=== PATIENT | male | born 1990 | race Caucasian/White ===

== ENCOUNTER 2025-05-06 17:22 | Emergency (ER) | payer MEDICAID ==
[~2025-05-06] VITALS: Ht 172.7 cm; Wt 65.9 kg
--- NOTE | 2025-05-06 17:39 | ELECTROCARDIOGRAPH REPORT ---
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
[2025-05-06 18:00] LABS: MEAN PLATELET VOLUME 8.7 FL (7.4-10.4); RED CELL DISTRIBUTION WIDTH 14.0 % (11.5-14.5)
[2025-05-06 18:16] LABS: CREATININE 0.65 MG/DL (0.60-1.10); TOTAL CARBON DIOXIDE 25.1 MMOL/L (24-32); eCRCL 148 ML/MIN; eGFR > 90 ML/MIN
[2025-05-06 18:52] LABS: ETHANOL < 10 MG/DL (<10)
[2025-05-06 19:24] LABS: URINE AMPHETAMINE SCREEN NEGATIVE (Neg); URINE BARBITUATE SCREEN NEGATIVE (Neg); URINE BENZODIAZEPINES SCREEN NEGATIVE (Neg); URINE CANNABINOID SCREEN NEGATIVE (Neg); URINE COCAINE SCREEN NEGATIVE (Neg); URINE METHADONE SCREEN NEGATIVE (Neg); URINE OPIATE SCREEN NEGATIVE (Neg); URINE PHENCYCLIDINE SCREEN NEGATIVE (Neg)
--- NOTE | 2025-05-06 19:41 | RADIOLOGY REPORT ---
CT CT HEAD INDICATION: new onset hallucinations COMPARISON: None TECHNIQUE: CT of the head without intravenous contrast. RADIATION DOSE: CTDIvol: mGy, DLP: mGy*cm FINDINGS: No evidence of intracranial hemorrhage, extra-axial collection, mass effect, midline shift, or herni ation. Ventricles, sulci and cisterns are normal with no hydrocephalus. Rosales-white differentiation is normal. Visualized paranasal sinuses and mastoid air cells are clear. Soft tissues and osseous struc tures are unremarkable. IMPRESSION: No intracranial abnormality identified.
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
[2025-05-06 20:04] VITALS: BP 137/95; PULSE 100; RESP 16; TEMP 97.6; O2SAT 100
== END 2025-05-06 20:14 | disposition home or self-care (01) ==
LOC: ER 17:24
DX: R44.0 Auditory hallucinations (principal); R44.1 Visual hallucinations; F10.229 Alcohol dependence with intoxication, unspecified; Z95.0 Presence of cardiac pacemaker; Y90.0 Blood alcohol level of less than 20 mg/100 ml
CPT/HCPCS: 36415; 70450; 80053; 80305; 80320; 85025; 93005; 99284

== ENCOUNTER 2025-05-07 07:59 | Emergency (ER) | payer MEDICAID ==
[~2025-05-07] VITALS: Ht 172.7 cm; Wt 65.9 kg
[2025-05-07 08:01] VITALS: BP 146/102; TEMP 97.4
--- NOTE | 2025-05-07 09:27 | Physician Documentation ---
History of Present Illness ~ Chief Complaint: Toe pain Stated Complaint: TOE PAIN Time Seen by MD: 09:13 OK to notify your PCP?: Yes [facility] Source: patient Mode of Arrival: POV Exam Limitations: no limitations HPI 34 year old male with chief complaint right great toe pain after he hit his toe into the side of the bathtub this morning. He states it caused his nail plate to bend back and now it is partially attached. He is requesting his toenail to be removed as he states he went through this in the past and would rather just have the nail plate removed rather than wait for it to fall off on its own. He states he does not have any pain in the toe itself that all the pain is at the nail plate. He states his toe is bleeding from underneath the nail plate due to the trauma but no other bleeding. He did not fall. No injury to any other area. Tetanus witin 5 years: No Medication Reconciliation Allergies: Coded Allergies: No Known Allergies (Unverified , 05/07/25) Past Medical History Past Medical History: No Pertinent History Review of Systems All Other Systems at this time: Reviewed and Negative Physical Exam Vital Signs: Temperature: 97.4, Source: Oral, Heart Rate: 98, Respiratory Rate: 18, BP: 146/102, Pulse Oximetry: 100, Weight: 65.910 Physical Exam Musculoskeletal: Right great toe active range motion is full normal inspection no swelling, lacerations cap refill at the tip of the toe is less than 2 seconds. Skin: Right great toe nail plate has almost completely from underlying skin it is still attached at the lower part of the nail plate there is bleeding from underneath the nail plate nail plate is thickened and discolored consistent with onychomycosis. Rest of toes and foot normal inspe ction. General Appearance: Alert, WD/WN. NAD. HEENT: NCAT, PERRL, EOMI. Neck: Supple, trachea midline. Lungs: Breathing unlabored Neurological: Alert and oriented x4, normal gait. Psychiatric: Affect congruent with mood. Procedures Procedures Right great toe base of toe cleaned with ChloraPrep and a 27 gauge needle was used to inject 1% lidocaine without epi to achieve a digit block the nail plate was then grasped with forceps in light traction applied and removed the nail plate entirely including the matrix. Patient tolerated well. Simple dressing placed. Progress Results/Orders Results/Orders Orders - YONIS VELAZQUEZ Laceration/I&D Tray Set Up (05/07/25 09:28) Completed Orders - YONIS VELAZQUEZ Lidocaine 1% 30ml Vial (Xylocaine 1% Via (05/07/25 09:30) Vital Signs 05/07/25 05/07/25 08:01 10:31 Temp 97.4 Pulse 98 88 Resp 18 18 B/P (MAP) 146/102 Pulse Ox 100 98 Medical Decision Making Toe Diff Dx:Considerations: Include: Abrasion, Cellulitis, Contusion, Dislocation, Felon, Fracture, Hematoma, Laceration, Neurovascular injury, Open fracture, Paronychia, Subungual hematoma, Other Additional Comment Active range motion of great toe is full no concern for fracture. Tetanus immunization is up-to-date Departure Time of Disposition: 09: Disposition: 01 HOME / SELF CARE / HOMELESS Impression: Primary Impression: Torn toenail Additional Impressions: Onychomycosis Injury of toenail of right foot Qualified Codes: S99.921A - Unspecified injury of right foot, initial encounter Condition: Stable Discharge Instructions: General Discharge Instructions Additional Instructions: keep area cleaned until healed if any concerns for infection such as increasing pain, redness return to ER Referrals: NO PRIMARY CARE PROVIDER (PCP) Education Educated: Patient Educated regarding: diagnosis, treatment, need for follow up Signature Scribe Signature: x Attestation: YONIS Whitt May 07, 2025 09:27
[2025-05-07] MEDS: LIDOcaine 1% 30ml preserv. free vial IJ ONE (10:04)
[2025-05-07 10:31] VITALS: PULSE 88; RESP 18; O2SAT 98
[2025-05-08] MEDS ORDERED: THIA50TA10 PO (14:17)
[2025-05-08] MEDS ORDERED: FOLI0.4T6 PO (14:17)
[2025-05-08] MEDS ORDERED: MECO10005 PO (14:17)
[2025-05-08] MEDS ORDERED: LORA-269 PO (14:17)
[2025-05-08] MEDS ORDERED: ONDA-245 PO (14:19)
== END 2025-05-07 10:34 | disposition home or self-care (01) ==
LOC: ER 07:59
DX: S91.121A Laceration with foreign body of right great toe without damage to nail, initial encounter (principal); B35.1 Tinea unguium; X58.XXXA Exposure to other specified factors, initial encounter; Y93.89 Activity, other specified; Y92.89 Other specified places as the place of occurrence of the external cause; Y99.8 Other external cause status
CPT/HCPCS: 11730; 11750; 99284

== ENCOUNTER 2025-05-08 11:18 | Emergency (ER) | payer MEDICAID ==
[~2025-05-08] VITALS: Ht 172.7 cm; Wt 61.2 kg
[2025-05-08 11:39] VITALS: TEMP 98
--- NOTE | 2025-05-08 12:17 | Physician Documentation ---
History of Present Illness ~ Chief Complaint: ETOH Withdrawl Stated Complaint: ETOH Time Seen by MD: 12:15 Primary Medical Doctor: [facility] HPI This is a 34-year-old male with a reported history of alcoholism, typically drinking a 5th of hard liquor a day along with beer. He reports that he has been trying to cut down on his alcohol intake over the last couple of days. He had a drink this morning. Symptoms include nausea, tremor, headache, hallucinations. Tetanus within 5 years?: No Medication Reconciliation Allergies: Coded Allergies: No Known Allergies (Unverified , 05/07/25) Scheduled Folic Acid* (Folic Acid*), 1 TAB PO DAILY Lorazepam (Ativan), 1 TAB PO Q8H Mecobalamin (B12 Active), 1 TAB PO DAILY Thiamine HCl (Vitamin B-1), 2 TAB PO DAILY Scheduled PRN Ondansetron 8mg ODT (Ondansetron Odt), 1 TAB PO TID PRN for nausea/vomiting Past Medical History Past Medical History: No Pertinent History Review of Systems ROS As stated above in the HPI, otherwise all systems are reviewed and negative. Physical Exam Vital Signs: Temperature: 98.0, Source: Temporal, Heart Rate: 108, Respiratory Rate: 18, BP: 126/85, Pulse Oximetry: 99, Weight: 61.200 Oxygen Flow Rate: 0 Physical Exam General: Alert, appears uncomfortable. Neck: Full range of motion. Respiratory: Lungs clear, no respiratory distress. Chest: No accessory muscle use. Cardiovascular: Regular rate and rhythm, no murmurs. Gastrointestinal: Soft, nontender, nondistended. Bowels sounds present. Extremities: Normal range of motion, no deformity. Neurologic: Oriented x4. Resting tremor to shilo outstretched hands. Psychiatric: Normal mood and affect. Skin: Normal color, warm and dry. No edema, no ecchymosis. Progress Results/Orders Results/Orders Orders - LINDA WHITE FILM PROCESSING SUPERVISOR * Iv Access / Saline Lock * (05/08/25 12:15) Completed Orders - LINDA WHITE FILM PROCESSING SUPERVISOR CMP (05/08/25 12:15) Cbc/Diff (05/08/25 12:15) Lipase (05/08/25 12:15) Drug Screen, Urine (05/08/25 12:15) Ethanol (05/08/25 12:15) MG (05/08/25 12:15) Diazepam Inj (Valium Inj) (05/08/25 12:15) Normal Saline 1000ml (0.9% Sodium Chlori (05/08/25 12:15) Ondansetron Inj. (Zofran 4mg/2ml Vial) (05/08/25 12:15) Diazepam Inj (Valium Inj) (05/08/25 14:20) Thiamine Inj. (Thiamine Inj.) (05/08/25 15:35) Cyanocobalamin Inj (Cyanocobalamin Inj) (05/08/25 15:35) Folic Acid Tablet (Folic Acid Tablet) (05/08/25 15:35) Medications Received in ER Medications (Trade) Dose Ordered Sig/Magali Route PRN Reason Start Time Stop Time Status Last Admin Dose Admin (Valium inj) 5 mg ONCE ONCE IV 05/08/25 12:15 05/08/25 12:18 DC 05/08/25 12:38 5 MG Sodium Chloride 1,000 ml @ 1,000 mls/hr ONCE ONCE IV 05/08/25 12:15 05/08/25 13:14 DC 05/08/25 12:38 1,000 MLS/HR (Zofran 4mg/2ml vial) 4 mg ONCE ONCE IV 05/08/25 12:15 05/08/25 12:18 DC 05/08/25 12:39 4 MG (Valium inj) 5 mg ONCE ONCE IV 05/08/25 14:20 05/08/25 14:23 DC 05/08/25 14:39 5 MG (thiamine inj.) 100 mg ONCE ONCE IV 05/08/25 15:35 05/08/25 15:36 DC 05/08/25 15:41 100 MG (folic acid tablet) 1 mg ONCE ONCE PO 05/08/25 15:35 05/08/25 15:36 DC 05/08/25 15:41 1 MG Vital Signs 05/08/25 05/08/25 05/08/25 11:39 12:46 13:37 Temp 98.0 Pulse 108 92 Resp 18 22 17 B/P (MAP) 126/85 124/83 (97) Pulse Ox 99 96 O2 Flow Rate 0 Laboratory Tests Test 05/08/25 12:29 05/08/25 12:38 Urine Opiates Screen Negative Urine Methadone Screen Negative Urine Fentanyl Screen Negative Urine Barbiturates Screen Negative Urine Phencyclidine Screen Negative Urine Amphetamines Screen Negative Urine Benzodiazepines Screen Positive Urine Cocaine Screen Negative Urine Cannabinoids Screen Negative Drug Screen Comment White Blood Count 9.9 Red Blood Count 4.59 L Hemoglobin 15.0 Hematocrit 43.7 Mean Corpuscular Volume 95.3 Mean Corpuscular Hemoglobin 32.6 H Mean Corpuscular Hemoglobin Concent 34.2 Red Cell Distribution Width 13.7 Platelet Count 153 Mean Platelet Volume 8.1 Neutrophils (%) (Auto) 71.6 Lymphocytes (%) (Auto) 16.2 L Monocytes (%) (Auto) 11.0 Eosinophils (%) (Auto) 0.8 Basophils (%) (Auto) 0.4 Neutrophils # (Auto) 7.0 Lymphocytes # (Auto) 1.6 Monocytes # (Auto) 1.1 H Eosinophils # (Auto) 0.1 Basophils # (Auto) 0.0 CBC Comment Sodium Level 140 Potassium Level 4.0 Chloride Level 104 Carbon Dioxide Level 28.8 Anion Gap 7 L Blood Urea Nitrogen 16 Creatinine 0.65 Estimated GFR/1.73 m2 > 90 BUN/Creatinine Ratio 24.6 H Glucose Level 79 Calcium Level 9.0 Magnesium Level 2.6 H Total Bilirubin 0.5 Aspartate Amino Transf (AST/SGOT) 86 H Alanine Aminotransferase (ALT/SGPT) 164 H Alkaline Phosphatase 80 Total Protein 7.2 Albumin 4.3 Globulin 2.9 Albumin/Globulin Ratio 1.5 Lipase 125 H Chemistry Comments Ethyl Alcohol Level < 10 Medical Decision Making Differential Dx:Considerations: Include: Intoxication-Alcohol, Intoxication- Other drug, Personality disorder, Substance abuse disorder, Acute delirium, Closed head injury, Cervical spine injury, Skull fracture, Fracture(s), Abrasion, Contusion, Foreign body, Hematoma, Laceration, Alcohol withdrawl syndrom, Encephalopathy, Hepatitis, Medically stable Differential Diagnosis Labs unremarkable. Treated with two doses of diazepam. Folic acid, thiamine, B12 given in ER. Hydrated with one liter NS. Minimal w/d symptoms. No hallucinations while in the ER. Will send home on lorazepam and prn ondansetron. Return if worse. All care instructions discussed with his landlord from whom he rents a room. Landlord agrees to keep close eye on him. Encouraged to go to AA daily. Discussed with patient and landlord the need to return immediately if worse. Departure Time of Disposition: 14:16 Disposition: 01 HOME / SELF CARE / HOMELESS Impression: Primary Impression: Alcohol abuse Condition: Stable Discharge Instructions: Alcohol Use Disorder Additional Instructions: Participate in AA meetings daily. Avoid any further alcohol. See your primary care provider for a recheck within three days. Return here immediately if worse. The lorazepam is to replace alcohol in your body and prevent withdrawal symptoms. Use the ondansetron if you're nauseated. Drink plenty of fluids. Referrals: NO PRIMARY CARE PROVIDER (PCP) Prescriptions Ondansetron 8mg ODT (Ondansetron Odt) 8 Mg Tab.rapdis 1 TAB PO TID PRN for nausea/vomiting, #10 TAB Prov: LINDA WHITE NP 05/08/25 Thiamine HCl (Vitamin B-1) 50 Mg Tablet 2 TAB PO DAILY for 30 Days, #60 TAB 0 Refills Prov: LINDA WHITE NP 05/08/25 Mecobalamin (B12 Active) 1,000 Mcg Tab.chew 1 TAB PO DAILY for 30 Days, #30 TAB 0 Refills Prov: LINDA WHITE NP 05/08/25 Folic Acid* (Folic Acid*) 0.4 Mg Tablet 1 TAB PO DAILY for 30 Days, #30 TAB Prov: LINDA WHITE NP 05/08/25 Lorazepam (Ativan) 1 Mg Tablet 1 TAB PO Q8H for alcohol withdrawal symptoms for 7 Days, #21 TAB 0 Refills Prov: LINDA WHITE NP 05/08/25 Education Educated: Patient Educated regarding: diagnosis, treatment, prognosis, need for follow up Signature Scribe Signature: x Attestation: The note accurately reflects work and decisions made by me.Linda Bar NP 05/08/25 12:41 LINDA WHITE NP May 08, 2025 12:17
[2025-05-08] MEDS: diazepam inj 5 MG/ML inj. IV ONE ×2 (12:38→14:39)
[2025-05-08] MEDS: normal saline 1000ml 1,000 ML IV ONE (12:38)
[2025-05-08] MEDS: ondansetron/PF 4mg/2ml inj IV ONE (12:39)
[2025-05-08 12:46] LABS: MEAN PLATELET VOLUME 8.1 FL (7.4-10.4); RED CELL DISTRIBUTION WIDTH 13.7 % (11.5-14.5)
[2025-05-08 13:02] LABS: CREATININE 0.65 MG/DL (0.60-1.10); TOTAL CARBON DIOXIDE 28.8 MMOL/L (24-32); eCRCL 137 ML/MIN; eGFR > 90 ML/MIN
[2025-05-08 13:13] LABS: URINE AMPHETAMINE SCREEN NEGATIVE (Neg); URINE BARBITUATE SCREEN NEGATIVE (Neg); URINE BENZODIAZEPINES SCREEN POSITIVE (Neg); URINE CANNABINOID SCREEN NEGATIVE (Neg); URINE COCAINE SCREEN NEGATIVE (Neg); URINE METHADONE SCREEN NEGATIVE (Neg); URINE OPIATE SCREEN NEGATIVE (Neg); URINE PHENCYCLIDINE SCREEN NEGATIVE (Neg)
[2025-05-08 13:28] LABS: ETHANOL < 10 MG/DL (<10)
[2025-05-08] MEDS ORDERED: FOLI0.4T6 PO (14:17)
[2025-05-08] MEDS ORDERED: MECO10005 PO (14:17)
[2025-05-08] MEDS ORDERED: THIA50TA10 PO (14:17)
[2025-05-08] MEDS ORDERED: LORA-269 PO (14:17)
[2025-05-08] MEDS ORDERED: ONDA-245 PO (14:19)
[2025-05-08] MEDS: thiamine 100mg/ml 2ml inj. IV ONE (15:41)
[2025-05-08 16:13] VITALS: BP 118/89; PULSE 82; RESP 16; O2SAT 100
== END 2025-05-08 16:17 | disposition home or self-care (01) ==
LOC: ER 11:19
DX: F10.10 Alcohol abuse, uncomplicated (principal); Z79.899 Other long term (current) drug therapy; Y90.0 Blood alcohol level of less than 20 mg/100 ml
CPT/HCPCS: 36415; 80053; 80305; 80320; 83690; 83735; 85025; 96361; 96372; 96374; 96375; 96376; 99284; J2405; J3360; J3411; J3420; J7030